=== PATIENT | male | born 1945 | race Caucasian/White ===

== ENCOUNTER 2020-09-16 07:30 | Day surgery (SDC) | payer OTHER ==
[2020-09-13 12:01] LABS: BASOPHILS % (AUTO) 0.6 % (0.0-5.0); EOSINOPHILS % (AUTO) 3.1 % (0.0-8.0); HEMATOCRIT 37.5 % (42-54); LYMPHOCYTES % (AUTO) 18.2 % (21.0-51.0); MEAN CORPUSCULAR HEMOGLOBIN 29.7 pg (27.0-33.0); MEAN CORPUSCULAR HGB CONC 32.8 g/dL (32.0-36.0); MEAN CORPUSCULAR VOLUME 90.6 fL (79-99); MONOCYTES % (AUTO) 9.9 % (3.0-13.0); PLATELET COUNT (AUTO) 188 K/uL (130-400); RED BLOOD CELL COUNT(AUTO) 4.14 MIL/uL (4.50-6.20); RED CELL DISTRIBUTION WIDTH 14.6 % (11.0-15.5); WHITE BLOOD COUNT (AUTO) 6.6 K/uL (4.8-10.8)
[2020-09-13 12:10] LABS: CREATININE 0.8 mg/dL (0.5-1.5)
[2020-09-13 12:14] LABS: INR 1.06 (0.85-1.15); PROTHROMBIN TIME 11.5 SEC (9.6-11.6)
[2020-09-13 12:15] LABS: PARTIAL THROMBOPLASTIN TIME 30.4 SEC (26.3-35.5)
[2020-09-15 12:10] VITALS: BP 186/67
[~2020-09-16] VITALS: Ht 162.6 cm; Wt 81.3 kg
[2020-09-16] VITALS (16 sets, daily range): BP systolic 150–186; BP diastolic 64–76
[~2020-09-16 07:30] MED LIST: ASPI-1197 PO; AUD IH; BUDE10.2 IH; FINA5TAB41 PO; HYDR200T4 PO; IPRA4AER IH; LISI10TA24 PO; METO-391 PO; MONT-39 PO; NAPR-1023 PO; PRED2.5T PO; ROSU40TA21 PO; TAMS-1 PO
[2020-09-16] MEDS ORDERED: LACTATED RINGERS 1000ML 1,000 ML IV ONE (08:16)
[2020-09-16] MEDS ORDERED: 0.9%NACL 10ML VIAL ONE (08:17)
[2020-09-16] MEDS: CEFTRIAXONE 1G VIAL IVP SCH ×2 (08:19→11:25)
[2020-09-16] MEDS ORDERED: LIDOCAINE PF 100MG/5ML (2%) SYRINGE 5ML ONE (11:07)
[2020-09-16] MEDS ORDERED: PROPOFOL 10 MG/ML 20ML VIAL IV ONE (11:08)
[2020-09-16] MEDS ORDERED: FENTANYL CITRATE PF 50 MCG/1 ML 2ML VIAL ONE (11:08)
[2020-09-16] MEDS ORDERED: MIDAZOLAM HCL 1 MG/ML 2ML VIAL ONE (11:08)
[2020-09-16] MEDS ORDERED: ONDANSETRON 4MG INJ ONE (11:08)
[2020-09-16] MEDS ORDERED: ROCURONIUM 10MG/1ML SYR 10 MG/ML ML ONE (11:08)
[2020-09-16] MEDS ORDERED: HYDROCORTISONE SOD SUCCINATE 100 MG/2 ML VIAL ONE (11:11)
[2020-09-16] MEDS ORDERED: OPIUM/BELLADONNA ALKALOIDS 1 EACH SUPP.RECT RC ONE (12:07)
[2020-09-16] MEDS ORDERED: NEOSTIGMINE 5MG/5ML SYR IV ONE (12:12)
[2020-09-16] MEDS ORDERED: GLYCOPYRROLATE 1 MG/5 ML SYRINGE ONE (12:12)
[2020-09-16] MEDS ORDERED: PHENAZOPYRIDINE HCL 200 MG TABLET ONE (13:54)
== END 2020-09-16 14:20 | disposition home or self-care (01) ==
LOC: DAH 07:30
PROVIDERS: ATTEND Urology
DX: N40.1 Benign prostatic hyperplasia with lower urinary tract symptoms (principal); R39.14 Feeling of incomplete bladder emptying; I10 Essential (primary) hypertension; I25.10 Atherosclerotic heart disease of native coronary artery without angina pectoris; J44.9 Chronic obstructive pulmonary disease, unspecified; Z79.01 Long term (current) use of anticoagulants; Z79.899 Other long term (current) drug therapy; Z20.828 Contact with and (suspected) exposure to other viral communicable diseases
CPT/HCPCS: 36415; 52648; 80048; 85025; 85610; 85730; 93005; A4215; A4221; A4222; A4223; A4340; A4354; A4358; A4510; A4663; A4930 ×2; A5113; C9803; J0696; J1720; J2001; J2250; J2405; J2704; J2710; J3490; J7120; U0003; J3010